=== PATIENT | male | born 1995 | race American Indian/Alaskan Native ===

== ENCOUNTER 2017-02-05 21:51 | Emergency (ER) | payer MEDICAID, OTHER ==
[2017-02-05 21:58] VITALS: BP 145/86
--- NOTE | 2017-02-05 22:20 | EDM.PDOC ---
ED HPI GENERAL MEDICAL PROBLEM - General Chief Complaint: General Stated Complaint: chest pain [id number] Time Seen by Provider: 02/05/17 22:10 Source of Information: Reports: Patient History Limitations: Reports: No Limitations - History of Present Illness INITIAL COMMENTS - FREE TEXT/NARRATIVE: This 21 yo male patient reports to the ED with right lower posterior dental pain and right sided chest pain. The patient reports his dental pain has been present for about 1 month, but his chest pain started 3 days ago. The patient reports he has not been seen by a dentist or by a primary care provider for either of his current symptoms. The patient reports he has been taking Tylenol and ibuprofen for his pain. The patient report she has taken Tums in the past for similar chest pains which relieved his symptoms. The patient also reports he has been noticing sum purulent drainage from his right posterior tooth intermittently over the past month with the last drainage noticed earlier today. Onset: Gradual Duration: Week(s):, Constant, Getting Worse Location: Reports: Face (right lower posterior tooth), Chest (left upper chest pain) Quality: Reports: Ache, Dull Severity: Moderate Improves with: Reports: Medication (Tylenol and ibuprofen) Worsens with: Reports: Other (lying down) Associated Symptoms: Reports: Chest Pain, Other (dental pain) Treatments KAIAKO KOHANGA REO: Reports: Acetaminophen, NSAIDS - Related Data Allergies Allergy/AdvReac Type Severity Reaction Status Date / Time No Known Allergies Allergy Verified 02/05/17 22:21 Home Meds: Home Meds . [No Known Home Meds] 07/10/15 [History] Past Medical History - Past Health History Medical/Surgical History: Denies Medical/Surgical History - Infectious Disease History Infectious Disease History: Reports: None Social & Family History - Family History Family Medical History: Noncontributory - Tobacco Use Smoking Status *Q: Current Every Day Smoker Years of Tobacco use: 3 Packs/Tins Daily: 0.1 Used Tobacco, but Quit: No - Caffeine Use Caffeine Use: Reports: Coffee, Soda - Recreational Drug Use Recreational Drug Use: No Drug Use in Last 12 Months: Yes Recreational Drug Type: Reports: Marijuana/Hashish Recreational Drug Use Frequency: Patient Refuses To Answer ED ROS GENERAL - Review of Systems Review Of Systems: ROS reveals no pertinent complaints other than HPI. ED EXAM, GENERAL - Physical Exam Exam: See Below Exam Limited By: No Limitations General Appearance: Alert, WD/WN, Mild Distress, Thin Eye Exam: Bilateral Eye: EOMI, Normal Inspection, PERRL Ears: Normal External Exam, Normal Canal, Hearing Grossly Normal, Normal TMs Nose: Normal Inspection, Normal Mucosa, No Blood Throat/Mouth: Normal Inspection, Normal Lips, Normal Gums, Normal Oropharynx, Normal Voice, No Airway Compromise, Other ([place] tooth right lower jaw has some slight erythema near the gum line with no obvious drainage. ) Head: Atraumatic, Normocephalic Neck: Normal Inspection, Supple, Non-Tender, Full Range of Motion Respiratory/Chest: No Respiratory Distress, Lungs Clear, Normal Breath Sounds, No Accessory Muscle Use, Chest Non-Tender Cardiovascular: Normal Peripheral Pulses, Regular Rate, Rhythm, No Edema, No Gallop, No JVD, No Murmur, No Rub GI/Abdominal: Normal Bowel Sounds, Soft, Non-Tender, No Organomegaly, No Distention, No Abnormal Bruit, No Mass (Male) Exam: Deferred Rectal (Males) Exam: Deferred Back Exam: Normal Inspection, Full Range of Motion, NT Extremities: Normal Inspection, Normal Range of Motion, Non-Tender, Normal Capillary Refill, No Pedal Edema Neurological: Alert, Oriented, CN II-XII Intact, Normal Cognition, Normal Gait, Normal Reflexes, No Motor/Sensory Deficits Psychiatric: Normal Affect, Normal Mood Skin Exam: Warm, Dry, Intact, Normal Color, No Rash Lymphatic: No Adenopathy Course - Vital Signs Last Recorded V/S: Last Vital Signs Temp 37.6 C 02/05/17 21:56 Pulse 74 02/05/17 21:56 Resp 16 02/05/17 21:56 BP 145/86 H 02/05/17 21:56 Pulse Ox 99 02/05/17 21:56 - Orders/Labs/Meds Orders: Active Orders 24 hr Category Date Time Status EKG Documentation Completion [RC] URGENT Care 02/05/17 22:14 Active Labs: Laboratory Tests 02/05/17 02/05/17 Range/Units 22:25 22:25 WBC 7.8 (5.0-10.0) 10^3/uL RBC 5.43 (4.6-6.2) 10^6/uL Hgb 16.2 (14.0-18.0) g/dL Hct 47.5 (40.0-54.0) % MCV 87.5 (80-100) fL MCH 29.8 (27.0-34.0) pg MCHC 34.1 (33.0-35.0) g/dL Plt Count 172 (150-450) 10^3/uL Neut % (Auto) 72.6 (42.2-75.2) % Lymph % (Auto) 18.7 L (20.5-50.1) % [facility] % (Auto) 6.8 (2-8) % Eos % (Auto) 0.9 L (1.0-3.0) % Baso % (Auto) 1.0 (0.0-1.0) % Sodium 139 (135-145) mmol/L Potassium 3.6 (3.6-5.0) mmol/L Chloride 101 (101-111) mmol/L Carbon Dioxide 27.0 (21.0-31.0) mmol/L Anion Gap 14.6 BUN 13 (7-18) mg/dL Creatinine 0.9 (0.6-1.3) mg/dL Est Cr Clr Drug Dosing 137.44 mL/min Estimated GFR (MDRD) > 60 BUN/Creatinine Ratio 14.44 Glucose 99 (74-105) mg/dL Calcium 9.9 (8.4-10.2) mg/dl Total Bilirubin 1.1 H (0.2-1.0) mg/dL AST 24 (10-42) IU/L ALT 20 (10-60) IU/L Alkaline Phosphatase 64 (42-121) IU/L Troponin I < 0.02 (0.00-0.02) ng/ml Total Protein 8.1 (6.7-8.2) g/dl Albumin 5.2 (3.2-5.5) g/dl Globulin 2.9 Albumin/Globulin Ratio 1.79 Meds: Medications Discontinued Medications Generic Name Dose Route Start Last Admin Trade Name Freq PRN Reason Stop Dose Admin Al Hydroxide/Mg Hydroxide 30 ml 02/05/17 23:02 Gi Cocktail PO 02/05/17 23:03 ONETIME ONE Clindamycin HCl 300 mg 02/05/17 23:02 Cleocin PO 02/05/17 23:03 ONETIME ONE - Re-Assessments/Exams Free Text/Narrative Re-Assessment/Exam: 02/05/17 23:11 The patient was advised of the lab, EKG and x-ray results. Departure - Departure Time of Disposition: 23:38 Disposition: Home, Self-Care 01 Condition: Fair Clinical Impression: Dental abscess GERD (gastroesophageal reflux disease) Qualifiers: Esophagitis presence: esophagitis presence not specified Qualified Code(s): K21.9 - Gastro-esophageal reflux disease without esophagitis - Discharge Information Instructions: Dental Abscess, [id number], Gastroesophageal Reflux Disease, Adult Forms: ED Department Discharge Care Plan Goals: The patient was advised of the examination, EKG and lab results during the visit. The patient was given an oral dose of Clindamycin and a GI cocktail while in the ED. The patient was discharged with a script for Clindamycin (300 mg) #40 to take 1 by mouth 4 times per day for 10 days and Omeprazole (20 mg) # 30 to take 1 by mouth daily. If the patient has any additional symptoms or concerns, the patient should follow-up with his primary care facility or return to the emergency department. - My Orders Last 24 Hours: My Active Orders 02/05/17 22:14 EKG Documentation Completion [RC] URGENT - Assessment/Plan Last 24 Hours: My Active Orders 02/05/17 22:14 EKG Documentation Completion [RC] URGENT
[2017-02-05 22:49] LABS: ANION GAP 14.6; CHLORIDE,CL 101 mmol/L (101-111); SODIUM,NA 139 mmol/L (135-145)
[2017-02-05] MEDS ORDERED: GI Cocktail Oral Solution 30 ML PO ONE (23:02)
[2017-02-05] MEDS ORDERED: Clindamycin HCl 150 MG Cap PO ONE (23:02)
--- NOTE | 2017-02-07 21:14 | EKG ---
02/05/2017 - EDIE COOK - This 12-lead EKG shows normal sinus rhythm with a ventricular rate of 64. Normal axis. Nonspecific intraventricular conduction delay. No acute ST- segment or T-wave changes. [facility] /[id number]
== END 2017-02-05 23:53 | disposition home or self-care (01) ==
LOC: DL.ED 21:51
DX: K21.9 Gastro-esophageal reflux disease without esophagitis (principal); K04.7 Periapical abscess without sinus; F17.210 Nicotine dependence, cigarettes, uncomplicated
CPT/HCPCS: 36415; 71045; 80053; 80305; 81001; 84484; 85025; 93005; 93010; 99284; A9270

== ENCOUNTER 2017-03-19 19:05 | Emergency (ER) | payer SELFPAY ==
[2017-03-19 20:54] VITALS: BP 131/76
[2017-03-19] MEDS ORDERED: Ketorolac 30 MG/ML SDV IM ONE (23:05)
[2017-03-19] MEDS ORDERED: methylPREDNISolone Sodium Succinate 125 MG/2 ML SDV IM ONE (23:05)
--- NOTE | 2017-03-19 23:15 | EDM.PDOC ---
ED HPI GENERAL MEDICAL PROBLEM - General Chief Complaint: Back Pain or Injury Stated Complaint: LOWER BACK DOWN LEG, PAIN,NUMB Time Seen by Provider: 03/19/17 22:59 Source of Information: Reports: Patient, RN, RN Notes Reviewed History Limitations: Reports: No Limitations - History of Present Illness INITIAL COMMENTS - FREE TEXT/NARRATIVE: Pt presents to the ER with c/o right lower back pain which began 2-3 days ago after doing exercises. He denies any falls or trauma. He denies saddle anesthesia. He states he has shooting, stabbing pain down the right leg. He also admits to numbness and tingling at times down the right leg. 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 [No Known Home Meds] 07/10/15 [History] Past Medical History - Past Health History Medical/Surgical History: Denies Medical/Surgical History Psychiatric History: Reports: None - Infectious Disease History Infectious Disease History: Reports: None Social & Family History - Family History Family Medical History: Noncontributory - Tobacco Use Smoking Status *Q: Unknown Ever Smoked Years of Tobacco use: 3 Packs/Tins Daily: 0.1 Used Tobacco, but Quit: No - Caffeine Use Caffeine Use: Reports: Coffee, Soda - Recreational Drug Use Recreational Drug Use: No Drug Use in Last 12 Months: Yes Recreational Drug Type: Reports: Marijuana/Hashish Recreational Drug Use Frequency: Patient Refuses To Answer ED ROS GENERAL - Review of Systems Review Of Systems: ROS reveals no pertinent complaints other than HPI. ED EXAM,LOWER BACK PAIN/INJURY - Physical Exam Exam: See Below Exam Limited By: No Limitations General Appearance: Alert, WD/WN, No Apparent Distress Eye Exam: Bilateral Eye: EOMI, Normal Inspection, PERRL Ears: Normal External Exam, Hearing Grossly Normal Nose: Normal Inspection Throat/Mouth: Normal Inspection, Normal Voice, No Airway Compromise Head: Atraumatic, Normocephalic Neck: Normal Inspection, Supple, Non-Tender, Full Range of Motion Respiratory/Chest: No Respiratory Distress, Lungs Clear, Normal Breath Sounds, No Accessory Muscle Use, Chest Non-Tender Cardiovascular: Normal Peripheral Pulses, Regular Rate, Rhythm, No Edema, No Gallop, No JVD, No Murmur, No Rub GI/Abdominal: Normal Bowel Sounds, Soft, Non-Tender, No Organomegaly, No Distention, No Abnormal Bruit, No Mass (Male) Exam: Deferred Rectal (Males) Exam: Deferred Back Exam: Normal Inspection, Full Range of Motion, Muscle Spasm. No: CVA Tenderness (L), CVA Tenderness (R), Paraspinal Tenderness, Vertebral Tenderness Extremities: Normal Inspection, Limited Range of Motion (right leg) Neurological: Alert, Normal Mood/Affect, No Motor/Sensory Deficits, Oriented x 3 Psychiatric: Normal Affect, Normal Mood Skin Exam: Warm, Dry, Intact, Normal Color, No Rash Lymphatic: No Adenopathy Course - Vital Signs Last Recorded V/S: Last Vital Signs Temp 98.5 F 03/19/17 20:53 Pulse 75 03/19/17 20:53 Resp 16 03/19/17 20:53 BP 131/76 03/19/17 20:53 Pulse Ox 75 L 03/19/17 20:53 - Orders/Labs/Meds Meds: Medications Discontinued Medications Generic Name Dose Route Start Last Admin Trade Name Jensenq PRN Reason Stop Dose Admin Ketorolac Tromethamine 60 mg 03/19/17 23:05 03/19/17 23:16 Toradol IM 03/19/17 23:06 60 mg ONETIME ONE Administration Methylprednisolone Sodium Succinate 125 mg 03/19/17 23:05 03/19/17 23:16 Solu-Medrol IM 03/19/17 23:06 125 mg ONETIME ONE Administration Orphenadrine Citrate 60 mg 03/19/17 23:15 03/19/17 23:16 Norflex IM 60 mg Q12H LALY Administration Departure - Departure Time of Disposition: 23:08 Disposition: Home, Self-Care 01 Condition: Fair Clinical Impression: Lumbar radiculopathy, acute, Muscle strain - Discharge Information Instructions: Back Injury Prevention, [id number], Muscle Strain, [id number] , Back Pain, Adult, [id number] Forms: ED Department Discharge Additional Instructions: RX: Prednisone, Norflex, Diclofenac Rest, ice to area as tolerated Follow up with your primary care facility
== END 2017-03-19 23:40 | disposition home or self-care (01) ==
LOC: DL.ED 19:05
DX: S39.012A Strain of muscle, fascia and tendon of lower back, initial encounter (principal); M54.16 Radiculopathy, lumbar region; X50.9XXA Other and unspecified overexertion or strenuous movements or postures, initial encounter
CPT/HCPCS: 96372; 99283; J1885; J2360; J2930